=== PATIENT | male | born 2000 | race Caucasian/White ===

== ENCOUNTER 2025-03-06 06:50 | Emergency (ER) | payer SELFPAY ==
--- OUTSIDE RECORDS SUMMARY | 2024-11-22 04:00 | XMS_ITS ---
Author Organization [facility] Address [address] [place] [address] Care Team Providers Care Audio Experience Expert Name Role Phone Baljinder Parra Primary Care Provider REASON FOR VISIT 4 month follow up Encounters Encounter Location Date Provider Diagnosis [facility] [address] [address] 11/22/2024 Baljinder Parra Plan Of Treatment Next Appt Details Provider Name:Baljinder Parra, 05/30/2025 08:40:00 AM, [address] [address], [place], [phone], Progress Notes * GREENMathieudemiDOB:2000 ( 24 yo M)Acc No.[id number]:11/22/2024 Progress Notes Patient: Carlton Pope Provider: Lesia Parra MD :2000 A ge:24 Y S ex:Male Date:11/22/2024 Address:[address] [id number] Subjective: * Chief Complaints: * 4 month follow up Care Plan Details* * Electronic signature of Manisha Parra MD on 03/06/2025 at 06:57 AM CDT Sign off status: Pending * Provider: Lesia Parra MD Date: 11/22/2024 Generated for Hannah ng/Fazulyg/eTransmitting on: 0 03/06/2025 06:57 AM CDT
--- OUTSIDE RECORDS SUMMARY | 2024-11-24 04:20 | XMS_ITS ---
Author Organization [facility] Address [address] [place] [address] Care Team Providers Care Tile Designer Name Role Phone Baljinder Parra Primary Care Provider [phone] REASON FOR VISIT 4 MONTH F/U Encounters Encounter Location Date Provider Diagnosis [facility] [address] [address] 11/24/2024 Baljinder Parra Plan Of Treatment Next Appt Details Provider Name:Baljinder Parra, 05/30/2025 08:40:00 AM, [address] [address], [place], [address], Progress Notes * GREENMathieudemiDOB:2000 ( 24 yo M)Acc No.[id number]:11/24/2024 Progress Notes Patient: Carlton Pope Provider: Lesia Parra MD :2000 A ge:24 Y S ex:Male Date:11/24/2024 Address:[address] [id number] Subjective: * Chief Complaints: * 4 MONTH F/U Billing Information: * Procedure Codes: Care Plan Details* * Electronic signature of Manisha Parra MD on 03/06/2025 at 06:57 AM CDT Sign off status: Pending * Provider: Lesia Parra MD Date: 0 11/24/2024 Generated for Hannah ng/Faxing/eTransmitting on: 0 03/06/2025 06:57 AM CDT
[2025-03-06] VITALS (9 sets, daily range): BP systolic 122–142; BP diastolic 69–83; PULSE 55–96; RESP 18; TEMP 36.6; O2SAT 97–100
--- OUTSIDE RECORDS SUMMARY | 2025-03-06 06:57 | XMS_ITS | Patient Health Record ---
Author Organization [facility] Address [address] [place] [address] Care Team Providers Care Acid Washer Operator Name Role Phone Baljinder Parra Primary Care Provider Allergies No Known Allergies Reason For Referral No Information Medications Medication SIG (Take, Route, Frequency, Duration) Notes Start Date End Date Status Atomoxetine HCl 60 mg Capsule 1 po qd; Duration: 90 days Active Social History Tobacco Use: Social History Observation Description Date Details (start date - stop date) Never Smoker NA - NA Social History Depression Screening Social Info Question Answer Notes depression screening findings Findings Negative (0 -4) 11/29/24 PHQ-9 Little interest or p sal in doing things Not at all Feeling down, depressed, or hopeless Not at all Trouble falling or staying asleep, or sleeping t oo much Not at all Feeling tired or having little energy Not at all Poor appetite or overeating Not at all Feeling bad about yourself, or that you are a failure, or have let yourself or your family down Not at all Trouble concentrating on thi ngs, such as reading the newspaper or watching television Not at all Moving or speaking so slowly that other people could have noticed. Or the opposite ? being so fidgety or restless that you have been moving around a lot more than usual Not at all Thoughts that you would be b tamiko off , or of hurting yourself in some way Not at all Total Score 0 Drugs/Alcohol: Social Info Question Answer Notes Drugs Have you used drugs other than those for medical reasons in the past 12 months? Yes Marijuana? Gummies Drug/Alcohol: Social Info Question Answer Notes AUDIT-C (Standard) Did you have a drink containing alcohol in the past year? Yes How often did you have six or more drinks on one occasion in the past year? Less than monthly (1 point) How many drinks did you have on a typical day when you were drinking in the past year? 1 or 2 drinks (0 point) How often did you have a drink containing alcohol in the past year? Monthly or less (1 point) Points 2 Interpretation Negative Tobacco Use: Social Info Question Answer Notes Tobacco Control (Standard) Tobacco use: Nonsmoker Section Notes: 06/24/24 06/24/24 06/24/24 CIME Dep/tob - 11/29/24 Problems Problem Type SNOMED Code ICD Code Onset Dates Problem Status W/U Status Risk Notes Problem Adult ADHD (F90.9) Active confirmed Vital Signs Heart Rate 70 /min 11/29/2024 Temperature 98.2 degrees Fahrenheit 11/29/2024 Height-cm 177.8 cm 11/29/2024 Oximetry 99 % 11/29/2024 Blood pressure diastolic 70 mm Hg 11/29/2024 Weight-kg 65.77 kg 11/29/2024 Height 70 in 11/29/2024 Blood pressure systolic 120 mm Hg 11/29/2024 Weight 145 lbs 11/29/2024 BMI 20.8 kg/m2 11/29/2024 Encounters Encounter Location Date Provider Diagnosis [facility] [address] [place] [phone] 06/24/2024 Baljinder Parra Adult ADHD F90.9 and Depression screen Z13.31 [facility] [address] [address] 07/22/2024 Baljinder Parra Adult ADHD F90.9 [facility] [address] [place] [phone] 11/29/2024 Baljinder Parra Adult ADHD F90.9 and Depression screen Z13.31 [facility] [address] [address] 08/25/2024 Baljinder Parra Adult ADHD F90.9 Assessments Encounter Date Diagnosis (ICD Code) Assessment Notes Treatment Notes Treatment Clinical Notes Section Notes 07/22/2024 Adult ADHD (ICD-10 - F90.9) 08/25/2024 Adult ADHD (ICD-10 - F90.9) 11/29/2024 Adult ADHD (ICD-10 - F90.9) 06/24/2024 Adult ADHD (ICD-10 - F90.9) 06/24/2024 Depression screen (ICD-10 - Z13.31) 11/29/2024 Depression screen (ICD-10 - Z13.31) Plan Of Treatment Next Appt Details Provider Name:Baljinder Parra, 05/30/2025 08:40:00 AM, [address] [place] [address], [phone], Insurance Providers Payer Name Payer Address Payer Phone Subscriber Number Group Number Insured Name Patient Relationship to Insured Coverage Start Date Coverage End Date [place] Medicaid [address] [place] [address] [id number] Carlton Wright Self - patient is the insured Medical (General) History Medical History History ICD Code ADHD seasonal allergies
--- NOTE | 2025-03-06 07:08 | XRR_ITS ---
PROCEDURE INFORMATION: Exam: XR Nasal Bones Exam date and time: 03/06/2025 7:41 AM Age: 24 years old Clinical indication: Injury or trauma; Fall; Blunt trauma (contusions or hematomas); Nose TECHNIQUE: Imaging protocol: XR of the nasal bones. Views: Minimum of 3 views COMPARISON: CT head wo con* [id number] 03/06/2025 7:35 AM FINDINGS: Paranasal sinuses: Well aerated. Bones/joints: There is subtle linear lucency with slight cortical irregularity of the outer table of the left frontal bone overlying the frontal sinuses. Soft tissues: Unremarkable. XR/XR nasal bones min 3V [id number] IMPRESSION: Subtle cortical irregularity of the outer table of the left frontal calvarium, suggestive of fracture. Consider facial bone CT for further characterization.
--- NOTE | 2025-03-06 07:16 | ED_ITS ---
HPI - Syncope 2 General: Chief Complaint: Syncope Stated Complaint: vomitting, nose bleed Time Seen by Provider: 03/06/25 07:03 History of Present Illness: 24-year-old male presents emergency room after syncopal episode at home last night. Patient got up went to the bathroom states he felt nauseous and passed out on the way back to his bedroom. He struck his face and his nose. He has some swelling above his left eye. No vomiting. Denies any chest or abdominal pain Associated symptoms: Deny abdominal pain, chest pain or fever(s) Related Data Previous Rx's ?Medication ?Instructions ?Recorded amoxicillin 875 mg-potassium 1 tab PO BID #20 tabs clavulanate 125 mg tablet Allergies Allergy/AdvReac Type Severity Reaction Status Date / Time No Known Allergies Allergy Verified 02/04/24 14:46 Review of Systems 2 Const: Denies: fever(s) or chills Card: Denies: chest pain Resp: Denies: dyspnea GI: Denies: abdominal pain : Denies: dysuria, urinary frequency or urinary urgency Musc: Denies: neck pain or back pain Skin/Breast: Denies: rash PFSH ED 2 PFSH: Medical History ADHD (attention deficit hyperactivity disorder) Social History Smoking and tobacco/nicotine status: never used tobacco/nicotine Physical Exam 2 Const: GENERAL APPEARANCE: cooperative ORIENTATION/CONSCIOUSNESS: Yes awake, Yes oriented to person, Yes oriented to place and Yes oriented to time HENMT: COMMON NORMALS: normocephalic, atraumatic and hearing grossly normal bilaterally HEAD & SCALP: normocephalic and atraumatic Resp: COMMON NORMALS: normal respiratory effort, No retractions, No use of accessory muscles and clear to auscultation bilaterally AUSCULTATION: clear to auscultation bilaterally Cardio: COMMON NORMALS: regular rate, regular rhythm and No murmurs present (Cardio) RATE: regular rate RHYTHM: regular rhythm GI: COMMON NORMALS: Soft to palpation and No hepatosplenomegaly present A USCULTATION: Yes normoactive bowel sounds PALPATION: Yes Soft to palpation, No Tenderness to palpation present (GI), No Guarding due to palpation present (GI) and Yes No hepatosplenomegaly present Extremity: COMMON NORMALS: normal to inspection, capillary refill normal, no clubbing, cyanosis or edema, no calf tenderness and no pedal edema Neuro: SENSORIUM/ORIENTATION: Yes oriented to person, Yes oriented to place and Yes oriented to time Skin: COMMON NORMALS: no rashes or lesions noted GENERAL SKIN EXAM: no rashes or lesions noted Course 2 Vital Signs: Vital signs: Vital Signs Temperature 97.9 F 03/06/25 07:01 Pulse Rate 96 03/06/25 10:06 Respiratory Rate 18 03/06/25 07:01 Blood Pressure 125/69 03/06/25 10:06 Pulse Oximetry 100 03/06/25 10:06 Oxygen Delivery Me thod Room Air 03/06/25 09:32 MDM - Syncope Medical Decision Making Based on his history of think he had an orthostatic episode which led to his syncope. It began to happen immediately after he got up and began walking. He recovered there is no postictal phase he is not having any chest pain. He does have a closed orbit fracture I discussed with Dr. Gallagher who is on-call he is related that this likely will need surgical correction at a later date but is not emergent for today. Patient not having any signs of a CSF leak he did have a little epistaxis but on initial exam and on repeat exam there is no sign of CSF leak. Will start him on Augmentin because of the fracture. I talked to on- call ophthalmology they will see him tomorrow. On I examined at bedside using his Snellen chart he could relate all lines at 24 inches on the small chart. Recheck on his ocular movements they are all still normal. Lab Data 03/06/25 07:17 03/06/25 07:17 Radiology Impressions Nasal Bones X-Ray 03/06/25 07:08 IMPRESSION: Subtle cortical irregularity of the outer table of the left frontal calvarium, suggestive of fracture. Consider facial bone CT for further characterization. Head CT 03/06/25 07:24 IMPRESSION: 1. No acute intracranial hemorrhage or edema. 2. Comminuted depressed fracture involving the anterior LEFT frontal sinus with extension into the floor of the orbit. Possible involvement of the posterior wall LEFT frontal sinus. Recommend follow-up facial bone CT. Face CT 03/06/25 07:57 IMPRESSION: 1. Acute depressed fracture involving the anterior table of the LEFT frontal sinus. Fracture depressed by 4 mm. 2. Additional fractures involving the thin intrasinus LEFT frontal bony septa. 3. Foci of air at the fracture site extending into the LEFT orbital fat. 4. Nondisplaced fracture involving the junction superior wall of the orbit and the posterior table of the frontal bone. 5. No nasal bone fracture. Laboratory Results WBC 15.99 10^3/uL (3.29-11.43) H 03/06/25 07:17 RBC 5.85 10^6/uL (3.85-5.65) H 03/06/25 07:17 Hgb 16.60 g/dL (11.27-16.99) 03/06/25 07:17 Hct 49.5 % (37-53) 03/06/25 07:17 MCV 84.6 fl (82-101) 03/06/25 07:17 MCH 28.4 pg (27-33) 03/06/25 07:17 MCHC 33.5 g/dL (30-55) 03/06/25 07:17 RDW 12.8 % (12.1-15.1) 03/06/25 07:17 Plt Count 262 10^3/cmm (157-399) 03/06/25 07:17 MPV 9.9 fL (7.4-10.4) 03/06/25 07:17 Neut % (Auto) 87.8 % 03/06/25 07:17 Lymph % (Auto) 6.4 % 03/06/25 07:17 Hancock % (Auto) 4.6 % 03/06/25 07:17 Eos % (Auto) 0.3 % 03/06/25 07:17 Baso % (Auto) 0.5 % 03/06/25 07:17 Neut # (Auto) 14.04 10^3/uL (1.8-7.7) H 03/06/25 07:17 Lymph # (Auto) 1.0 10^3/uL (0.8-4.8) 03/06/25 07:17 Hancock # (Auto) 0.7 10^3/uL (0.2-0.9) 03/06/25 07:17 Eos # (Auto) 0.1 10^3/uL (0.0-0.8) 03/06/25 07:17 Baso # (Auto) 0.1 10^3/uL (0.0-0.1) 03/06/25 07:17 Nucleated RBC % (auto) 0 % 03/06/25 07:17 Nucleated RBCs # 0.0 /100WBC 03/06/25 07:17 Sodium 137 mmol/L (136-145) 03/06/25 07:17 Potassium 4.2 mmol/L (3.5-5.1) 03/06/25 07:17 Chloride 98 mmol/L (98-107) 03/06/25 07:17 Carbon Dioxide 25 mmol/L (22-29) 03/06/25 07:17 Anion Gap 18.2 (5-19) 03/06/25 07:17 BUN 15 mg/dL (6-20) 03/06/25 07:17 Creatinine 1.1 mg/dL (0.7-1.2) 03/06/25 07:17 GFR Calculation 82.2 mL/min (90-130) L 03/06/25 07:17 Glucose 141 mg/dL (65-115) H 03/06/25 07:17 Calculated Osmolality 287 mOsm/kg (285-295) 03/06/25 07:17 Calcium 9.8 mg/dL (8.5-10.5) 03/06/25 07:17 Total Bilirubin 0.3 mg/dL (0.15-1.2) 03/06/25 07:17 AST 22 U/L (0-40) 03/06/25 07:17 ALT 25 U/L (0-41) 03/06/25 07:17 Alkaline Phosphatase 132 U/L (40-130) H 03/06/25 07:17 Total Protein 8.1 g/dL (6.6-8.7) 03/06/25 07:17 Albumin 4.9 g/dL (3.5-5.2) 03/06/25 07:17 Globulin 3.2 g/dL (1.3-4.6) 03/06/25 07:17 Urine Color Yellow (Yellow) 03/06/25 09:41 Urine Appearance Cloudy (CLEAR) A 03/06/25 09:41 Urine pH 7.5 (5-7) 03/06/25 09:41 Ur Specific [place] 1.012 (1.005-1.030) 03/06/25 09:41 Urine Protein Negative (Negative) 03/06/25 09:41 Urine Glucose (UA) Negative (Normal) 03/06/25 09:41 Urine Ketones 1+ (Negative) H 03/06/25 09:41 Urine Blood Negative (Negative) 03/06/25 09:41 Urine Nitrate Negative (Negative) 03/06/25 09:41 Urine Bilirubin Negative (Negative) 03/06/25 09:41 Urine Urobilinogen 1.0 mg/dL (Negative) 03/06/25 09:41 Ur Leukocyte Esterase Negative (Negative) 03/06/25 09:41 Urine RBC 0-2 /hpf (0-2) 03/06/25 09:41 Urine WBC 0-5 /hpf (0-5) 03/06/25 09:41 Ur Squamous Epith Cells 0-5 /hpf (0-5) 03/06/25 09:41 Amorphous Sediment Not Reportable 03/06/25 09:41 Urine Bacteria None seen /hpf (NONE) 03/06/25 09:41 Hyaline Casts 0.81 /lpf 03/06/25 09:41 All radiology interpretation(s) finalized by discharge EKG Data EKG 1: Interpretation: EKG March 06, 2025 7:31 AM sinus bradycardia rate of 51 ID interval 151 QTc [address]. No acute ST changes noted. Some early repolarization repull noted nothing acute. Discharge Plan Discharge Patient Disposition: Home Clinical Impression: Syncope due to orthostatic hypotension, Closed fracture of left orbit Condition: Stable Prescriptions: New amoxicillin-pot clavulanate 875-125 mg tablet 1 tab PO BID Qty: 20 0RF Discharge Orders: Discharge ED (Routine); Ordered 03/06/25 Ordered By: Antony De Anda Referrals: [facility] [Outside] Referral Note: 8 AM March 07 Discharge Diet: Usual diet Discharge Activity: Increase activity as tolerated Patient Instructions: Opioid Safety, Pain Management, Patient Portal & Bart Instructions Activity Restrictions/Additional Instructions: [facility] today. It is very important that you follow up as instructed or that you return to the Emergency Department should you have concerns or if your condition changes or worsens in any way. You were seen in the emergency room after a fall. CT does not show any intracranial injury (bleeding inside of the head). You do have a fracture of the frontal sinus and the orbit of the eye. The orbit is the bony part that the eye is inside of. You are given oral antibiotics to prevent infection you should avoid blowing your nose. software release manager will make arrangements for you to follow-up with melter supervisor open hearth furnace of the fracture likely will need some surgical repair. You have an appointment for 8:00 tomorrow morning at the [facility] to further evaluate your eye. Print Language: Portuguese Coding Level of Care Code ED Block Placer for Chriss Garrison
--- NOTE | 2025-03-06 07:24 | CT_ITS ---
WS: [id number] CT HEAD NONCONTRAST HISTORY: trauma TECHNIQUE: Contiguous axial imaging performed through the brain. Bone and soft tissue windows. Sagittal and coronal reformats reviewed. All CT scans at [facility] use at least one of these dose optimization techniques: automated exposure control; mA and/or kV adjustment per patient size (includes targeted exams where dose is matched to clinical indication); or iterative reconstruction. DLP: 1009.58 mGy.cm COMPARISON: None available. No acute intracranial hemorrhage, midline shift or mass effect. No atrophy or prior infarcts or herniation. Ventricles: Normal size with no hydrocephalus. No inferior displacement of cerebellar tonsils. Paranasal sinuses: As visualized are clear. Mastoid air cells: Well pneumatized. Calvarium and scalp: Comminuted depressed fracture involving the LEFT frontal sinus and probably extension into the floor of the orbit. There is mild depression of the fracture fragments. Fracture fragment extends centrally. There is a small amount of adjacent edema. The entire fracture is not been included. The globe itself appears intact. CT/CT head wo con* [id number] IMPRESSION: 1. No acute intracranial hemorrhage or edema. 2. Comminuted depressed fracture involving the anterior LEFT frontal sinus wit h extension into the floor of the orbit. Possible involvement of the posterior wall LEFT frontal sinus. Recommend follow-up facial bone CT.
[2025-03-06 07:26] LABS: Hematocrit 49.5 % (37-53); Hemoglobin 16.60 g/dL (11.27-16.99); Mean Corpuscular HGB Conc 33.5 g/dL (30-55); Mean Corpuscular Hemoglobin 28.4 pg (27-33); Mean Corpuscular Volume 84.6 fl (82-101); Nucleated Red Blood Cells % 0 %; Platelet Count 262 10^3/cmm (157-399); Red Blood Count 5.85 10^6/uL (3.85-5.65); White Blood Count 15.99 10^3/uL (3.29-11.43)
--- NOTE | 2025-03-06 07:31 | ECG_ITS ---
[facility] Date: 2025-03-06 Pat Name: Carlton Wright Department: Room: Gender: Male Ride Attendant: : 2000 Requested By: Antony Barbour Order Number: [id number] Gilbert MD: Brad Thornton M.D. Measurements Intervals [place] Rate: 51 P: 57 MN: 151 QRS: 74 QRSD: 85 T: 51 QT: 367 QTc: 340 Interpretive Statements SINUS BRADYCARDIA POSSIBLE LEFT ATRIAL ENLARGEMENT [-0.1mV P-WAVE IN V1/V2] No previous ECG available for comparison Electronically Signed On 03-06-2025 17:00:08 CDT by Brad Thornton M.D. [email or web address]
[2025-03-06 07:42] LABS: Alanine Aminotransferase 25 U/L (0-41); Albumin Level 4.9 g/dL (3.5-5.2); Alkaline Phosphatase 132 U/L (40-130); Anion Gap 18.2 (5-19); Aspartate Amino Transferase 22 U/L (0-40); Blood Urea Nitrogen 15 mg/dL (6-20); Calcium 9.8 mg/dL (8.5-10.5); Carbon Dioxide 25 mmol/L (22-29); Chloride 98 mmol/L (98-107); Creatinine Clr Calc Pharmacy 101.9915; Globulin 3.2 g/dL (1.3-4.6); Glucose 141 mg/dL (65-115); Osmolality Calculated 287 mOsm/kg (285-295); Potassium 4.2 mmol/L (3.5-5.1); Sodium 137 mmol/L (136-145); Total Protein 8.1 g/dL (6.6-8.7)
--- NOTE | 2025-03-06 07:57 | CT_ITS ---
WS: [id number] CT FACIAL BONES HISTORY: Trauma TECHNIQUE: Images obtained from the supraorbital location through the mandible. Soft tissue and bone windows are reviewed. Coronal and sagittal reformats have also been submitted. DLP: 641.[address] scans at [facility] use at least one of these dose optimization techniques: automated exposure control; mA and/or kV adjustment per patient size (includes targeted exams where dose is matched to clinical indication); or iterative reconstruction. COMPARISON: None available. Acute depressed fracture involving anterior table of the LEFT frontal sinus. Fracture is depressed by approximately 4 mm. There are also intrasinus LEFT frontal septa which are fractured. No air-fluid levels in the frontal sinuses. There is a small amount of hemorrhage at the site of the fracture depression. There for a few small foci of air at the fracture site extending into the orbital fat near the lacrimal gland. There is a nondisplaced fracture involving the junction of the superior wall of the orbit with the posterior table of the frontal bone. No fracture involving the floor of the orbit. Soft tissue edema anterior to the LEFT frontal bone and the LEFT orbit. 2 mm hyperdense focus in the soft tissue may be a foreign body from the recent trauma. This is just lateral to the superior frontal zygomatic complex. Nasal bones are intact. Visualized cervical spine is normal. CT/CT facial bones wo con* 31233 IMPRESSION: 1. Acute depressed fracture involving the anterior table of the LEFT frontal s inus. Fracture depressed by 4 mm. 2. Additional fractures involving the thin intrasinus LEFT frontal bony septa. 3. Foci of air at the fracture site extending into the LEFT orbital fat. 4. Nondisplaced fracture involving the junction superior wall of the orbit and the posterior table of the frontal bone. 5. No nasal bone fracture.
--- NOTE | 2025-03-06 08:41 | PC.PHAR ---
Per , pt takes no maintenance medications. Last medication filled was Atomoxetine 60mg daily 12/02/24 30ds only.
[2025-03-06 09:56] LABS: Glucose Urine UA Negative (Normal); Nitrate Urine Negative (Negative); Specific Gravity, Urine 1.012 (1.005-1.030)
[2025-03-06 09:58] LABS: Add Urine Microscopic? YES
--- NOTE | 2025-03-07 08:06 | DCPLANNER ---
Sent referral to [facility]
--- NOTE | 2025-03-07 08:55 | DCPLANNER ---
Sent Referral to [facility]- DR Flores office does not do facial fractures.
== END 2025-03-06 10:05 | disposition home or self-care (01) ==
PROVIDERS: Emergency Provider Family Medicine; PCP Family Medicine
DX: I95.1 Orthostatic hypotension (principal); S02.85XA Fracture of orbit, unspecified, initial encounter for closed fracture; S02.19XA Other fracture of base of skull, initial encounter for closed fracture; X58.XXXA Exposure to other specified factors, initial encounter
CPT/HCPCS: 36415; 70160; 70450; 70486; 80053; 81001; 85025; 93005; 99285; J7030